=== PATIENT | female | born 1950 | race Caucasian/White ===

== ENCOUNTER → 2025-06-06 11:27 | Outpatient (CLI) | payer MEDICARE, SELFPAY ==
--- NOTE | 2025-06-06 11:31 | DI.RAD.S_ITS ---
PROCEDURE: XR KNEE LT 3V INDICATIONS: L knee pain TECHNIQUE: 3 views of the knee were acquired. COMPARISON: None. FINDINGS: Bones: No fractures or dislocations. No suspicious bony lesions. Tricompartmental joint space narrowing with associated osteophytosis. Soft tissues: Large joint effusion. No suspicious soft tissue calcifications. IMPRESSION: Large knee joint effusion. Correlate with recent trauma or injury, as findings may indicate internal derangement. 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 Dictated by: Sarkis Osman M.D. on 06/06/2025 at 16:45 Approved by: Sarkis Osman M.D. on 06/06/2025 at 16:46
== END ==
PROVIDERS: Referring Provider Physician Assistant; Visit Provider Physician Assistant
DX: M17.12 Unilateral primary osteoarthritis, left knee (principal); M25.462 Effusion, left knee; M25.562 Pain in left knee
CPT/HCPCS: 73562